=== PATIENT | female | born 1995 | race African-American/Black ===

== ENCOUNTER 2016-09-26 11:35 | Emergency (ER) | payer OTHER, MEDICAID ==
[~2016-09-26 11:35] MED LIST: IBUP800T23 PO; PRENTAB55 PO; TYLE325T5 PO
--- NOTE | 2016-09-26 13:25 | EDDOCDS ---
Physician Documentation [facility] Name: Farnaz Brambila Age: 21 yrs Sex: Female : 1995 Arrival Date: 09/26/2016 Time: 11:35 Bed TR7 Private MD: No Pcp Disposition: 09/26/16 12:57 Discharged to Home/Self Care. Impression: Laceration without foreign body of right wrist - superficial, no repair needed, Laceration without foreign body of left wrist - superficial, no repair needed. - Condition is Stable. - Discharge Instructions: Wound Care, [id number]. - Medication Reconciliation, Local Pharmacy Hours form. - Follow up: [facility]; When: Call to arrange an appointment; Reason: Further diagnostic work-up, Recheck today's complaints, Continuance of care. - Problem is new. - Symptoms are unchanged. Historical: - Allergies: Bees (Swelling); mushrooms (Anaphylaxis); oranges (Anaphylaxis); - Home Meds: 1. none - PMHx: Anemia; - PSHx: Left Foot Fracture Repair; - Immunization history:: Last tetanus immunization: unknown. - Family history: No immediate family members are acutely ill. - Social history: Smoking status: Patient states was never smoker of tobacco. No barriers to communication noted, The patient speaks fluent Arabic. - : The pt / caregiver states he / she is not on anticoagulants. Home medication list is obtained from the patient. - Exposure Risk Screening:: None identified. 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 5 in. (165.10 cm); Pain 6/10; 13:17 BP 109 / 71; Pulse 63; Resp 17; Temp 96.7(TE); Pulse Ox 100% ; mb9 11:38 Body Mass Index 30.79 (83.91 kg, 165.10 cm) cmb MDM: 12:59 Financial registration complete. pm4 13:11 [facility] Payment Agreement was scanned into [employer] and attached to record. pm4 Signatures: Lucas Jean PA PA btw Belles, MichaelRN RN mb9 Dominik Harper, Reg Reg pm4 The chart was reviewed and I authenticate all verbal orders and agree with the evaluation and treatment provided.Attachments: 13:11 [facility] Payment Agreement pm4 MTDD
--- NOTE | 2016-09-26 13:25 | EDDOCDS ---
Nurse's Notes [facility] Name: Farnaz Brambila Age: 21 yrs Sex: Female : 1995 Arrival Date: 09/26/2016 Time: 11:35 Bed TR7 Private MD: No Pcp Diagnosis: Laceration without foreign body of right wrist-superficial, no repair needed;Laceration without foreign body of left wrist-superficial, no repair needed Presentation: 09/26 11:41 Presenting complaint: Patient states: "I'm here for my wrists. My wouldn't let mb9 me through the door so I broke through the door". pt reports breaking through a glass door and that the glass shattered. laceration to bilateral wrists appear superficial. Adult Sepsis Screening: The patient does not have new or worsening altered mentation. Patient's respiratory rate is less than 22. Systolic blood pressure is greater than 100. Patient has a qSOFA score of 0- Negative Sepsis Screen. Suicide/Homicide risk assessment- the patient denies having any suicidal and/or homicidal ideations and does not present with any other emotional, behavioral or mental health complaints. Status: Patient is not a director public service or dependent. Transition of care: patient was not received from another setting of care. 11:41 Acuity: SIL Level 4 mb9 11:41 Method Of Arrival: Walkin/Carried/Asstd mb9 Triage Assessment: 11:43 General: Appears in no apparent distress, Behavior is appropriate for age. Pain: mb9 Location: right wrist Pain currently is 5 out of 10 on a pain scale. HIV screening NA for this visit Offered previously. Respiratory: Airway is patent Respiratory effort is even, unlabored. Injury Description: Laceration sustained to heel of left hand and right wrist is clean, superficial, 0.5 to 2.5 cm long. 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 none - PMHx: Anemia; - PSHx: Left Foot Fracture Repair; - Immunization history:: Last tetanus immunization: unknown. - Family history: No immediate family members are acutely ill. - Social history: Smoking status: Patient states was never smoker of tobacco. No barriers to communication noted, The patient speaks fluent Wolof. - : The pt / caregiver states he / she is not on anticoagulants. Home medication list is obtained from the patient. - Exposure Risk Screening:: None identified. Screenin:48 Abuse/DV Screen: The patient / caregiver reports he/she is: in a living situation that mb9 causes fear, pain or injury. There is an injury present, No other injuries are noted, pt asked if she lives in a situation that causes fear, pain, or injury and pt denied. pt was offered by this RN to have the social service assistant come and see the pt and the pt declined stating, "No I don't want to speak with them". This RN informed pt that if she changes her mind she should let one of the staff members kow. 13:22 Screening information is obtained from the patient. Fall risk: No risks identified. mb9 Assistance ADL's: requires no assistance with activities of daily living. Nutritional screening: No deficits noted. Advance Directives: There is no active DNR order. home support is adequate. Assessment: 13:22 Reassessment: Patient appears in no apparent distress at this time. General: Appears in mb9 no apparent distress, comfortable, Behavior is appropriate for age, cooperative. Pain: Location: right wrist Pain currently is 6 out of 10 on a pain scale. Respiratory: Airway is patent Respiratory effort is even, unlabored. Vital Signs: 11:38 BP 121 / 67; Pulse 105; Resp 16; Temp 99.2(O); Pulse Ox 98% ; Weight 83.91 kg; Height 5 cmb ft. 5 in. (165.10 cm); Pain 6/10; 13:17 BP 109 / 71; Pulse 63; Resp 17; Temp 96.7(TE); Pulse Ox 100% ; mb9 11:38 Body Mass Index 30.79 (83.91 kg, 165.10 cm) cmb Vitals: 11:38 Log In Time: September 26, 2016 at 11:34. cmb ED Course: 11:37 Patient visited by Leah Kelsey. cmb 11:37 Patient moved to Waiting cmb 11:38 No Pcp is Private Physician. cmb 11:38 Patient moved to Pre RCE cmb 11:42 Triage Initiated mb9 12:14 Patient moved to Triage 1 ar3 12:27 Lucas Jean PA is PHCP. btw 12:27 Jody De Dios MD is Attending Physician. btw 12:33 Patient visited by Lucas Jean PA. btw 12:56 [facility] is Referral Physician. btw 13:11 [facility] Payment Agreement was scanned into [employer] and attached to record. pm4 13:19 Patient moved to TR7 ar3 13:22 The patient / caregiver is instructed regarding the plan of care and ED course. mb9 13:22 No IV's were initiated during this patient's visit. No procedures done that require mb9 assistance. Order Results: There are currently no results for this order. Outcome: 12:57 Discharge ordered by Provider. btw 13:22 Discharge Assessment: Patient awake, alert and oriented x 3. No cognitive and/or mb9 functional deficits noted. Patient verbalized understanding of disposition instructions. patient administered narcotics - no. The following High Risk Discharge criteria are identified: None. Discharged to home ambulatory. Condition: good Condition: stable Condition: improved. Discharge instructions given to patient, Instructed on discharge instructions, follow up and referral plans. medication usage, Demonstrated understanding of instructions, medications, Pt was receptive of discharge instructions/ teaching. No special radiology studies were completed. Property :Personal belongings accompany Pt. 13:24 Patient left the ED. mb9 Signatures: Nanette Farris, BARBARA ARTS AND CRAFTS INSTRUCTOR ar3 Lucas Jean PA PA btw Leah Kelsey cmb Yaya Hernandez,RN RN mb9 Dominik Harper, Reg Reg pm4 MTDD
--- NOTE | 2016-09-28 14:25 | EDDOCDS ---
Nurse's Notes [facility] Name: Farnaz Brambila Age: 21 yrs Sex: Female : 1995 Arrival Date: 09/26/2016 Time: 11:35 Bed TR7 Private MD: No Pcp Diagnosis: Laceration without foreign body of right wrist-superficial, no repair needed;Laceration without foreign body of left wrist-superficial, no repair needed Presentation: 09/26 11:41 Presenting complaint: Patient states: "I'm here for my wrists. My wouldn't let mb9 me through the door so I broke through the door". pt reports breaking through a glass door and that the glass shattered. laceration to bilateral wrists appear superficial. Adult Sepsis Screening: The patient does not have new or worsening altered mentation. Patient's respiratory rate is less than 22. Systolic blood pressure is greater than 100. Patient has a qSOFA score of 0- Negative Sepsis Screen. Suicide/Homicide risk assessment- the patient denies having any suicidal and/or homicidal ideations and does not present with any other emotional, behavioral or mental health complaints. Status: Patient is not a director of student services or dependent. Transition of care: patient was not received from another setting of care. 11:41 Acuity: SIL Level 4 mb9 11:41 Method Of Arrival: Walkin/Carried/Asstd mb9 Triage Assessment: 11:43 General: Appears in no apparent distress, Behavior is appropriate for age. Pain: mb9 Location: right wrist Pain currently is 5 out of 10 on a pain scale. HIV screening NA for this visit Offered previously. Respiratory: Airway is patent Respiratory effort is even, unlabored. Injury Description: Laceration sustained to heel of left hand and right wrist is clean, superficial, 0.5 to 2.5 cm long. 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 none - PMHx: Anemia; - PSHx: Left Foot Fracture Repair; - Immunization history:: Last tetanus immunization: unknown. - Family history: No immediate family members are acutely ill. - Social history: Smoking status: Patient states was never smoker of tobacco. No barriers to communication noted, The patient speaks fluent Occitan. - : The pt / caregiver states he / she is not on anticoagulants. Home medication list is obtained from the patient. - Exposure Risk Screening:: None identified. Screenin:48 Abuse/DV Screen: The patient / caregiver reports he/she is: in a living situation that mb9 causes fear, pain or injury. There is an injury present, No other injuries are noted, pt asked if she lives in a situation that causes fear, pain, or injury and pt denied. pt was offered by this RN to have the social media marketing analyst come and see the pt and the pt declined stating, "No I don't want to speak with them". This RN informed pt that if she changes her mind she should let one of the staff members kow. 13:22 Screening information is obtained from the patient. Fall risk: No risks identified. mb9 Assistance ADL's: requires no assistance with activities of daily living. Nutritional screening: No deficits noted. Advance Directives: There is no active DNR order. home support is adequate. Assessment: 13:22 Reassessment: Patient appears in no apparent distress at this time. General: Appears in mb9 no apparent distress, comfortable, Behavior is appropriate for age, cooperative. Pain: Location: right wrist Pain currently is 6 out of 10 on a pain scale. Respiratory: Airway is patent Respiratory effort is even, unlabored. Vital Signs: 11:38 BP 121 / 67; Pulse 105; Resp 16; Temp 99.2(O); Pulse Ox 98% ; Weight 83.91 kg; Height 5 cmb ft. 5 in. (165.10 cm); Pain 6/10; 13:17 BP 109 / 71; Pulse 63; Resp 17; Temp 96.7(TE); Pulse Ox 100% ; mb9 11:38 Body Mass Index 30.79 (83.91 kg, 165.10 cm) cmb Vitals: 11:38 Log In Time: September 26, 2016 at 11:34. cmb ED Course: 11:37 Patient visited by Laeh Kelsey. cmb 11:37 Patient moved to Waiting cmb 11:38 No Pcp is Private Physician. cmb 11:38 Patient moved to Pre RCE cmb 11:42 Triage Initiated mb9 12:14 Patient moved to Triage 1 ar3 12:27 Lucas Jean PA is PHCP. btw 12:27 Jody De Dios MD is Attending Physician. btw 12:33 Patient visited by Lucas Jean PA. btw 12:56 [facility] is Referral Physician. btw 13:11 [facility] Payment Agreement was scanned into [employer] and attached to record. pm4 13:19 Patient moved to TR7 ar3 13:22 The patient / caregiver is instructed regarding the plan of care and ED course. mb9 13:22 No IV's were initiated during this patient's visit. No procedures done that require mb9 assistance. 09/27 12:50 T-Sheet-- Draft Copy was scanned into [employer] and attached to record. gb Order Results: There are currently no results for this order. Outcome: 09/26 12:57 Discharge ordered by Provider. btw 13:22 Discharge Assessment: Patient awake, alert and oriented x 3. No cognitive and/or mb9 functional deficits noted. Patient verbalized understanding of disposition instructions. patient administered narcotics - no. The following High Risk Discharge criteria are identified: None. Discharged to home ambulatory. Condition: good Condition: stable Condition: improved. Discharge instructions given to patient, Instructed on discharge instructions, follow up and referral plans. medication usage, Demonstrated understanding of instructions, medications, Pt was receptive of discharge instructions/ teaching. No special radiology studies were completed. Property :Personal belongings accompany Pt. 13:24 Patient left the ED. mb9 Signatures: Juanita Turner, Reg Reg gb Brenton, Nanette, GRADUATE RN GRADUATE RN ar3 Lucas Jean PA PA btw Leah Kelsey cmb Yaya Hernandez,ALIDA RN mb9 Dominik Harper, Reg Reg pm4 Chart Complete MTDD
--- NOTE | 2016-09-28 14:25 | EDDOCDS ---
Physician Documentation [facility] Name: Farnaz Brambila Age: 21 yrs Sex: Female : 1995 Arrival Date: 09/26/2016 Time: 11:35 Bed TR7 Private MD: No Pcp Disposition: 09/26/16 12:57 Discharged to Home/Self Care. Impression: Laceration without foreign body of right wrist - superficial, no repair needed, Laceration without foreign body of left wrist - superficial, no repair needed. - Condition is Stable. - Discharge Instructions: Wound Care, [id number]. - Medication Reconciliation, Local Pharmacy Hours form. - Follow up: [facility]; When: Call to arrange an appointment; Reason: Further diagnostic work-up, Recheck today's complaints, Continuance of care. - Problem is new. - Symptoms are unchanged. Historical: - Allergies: Bees (Swelling); mushrooms (Anaphylaxis); oranges (Anaphylaxis); - Home Meds: 1. none - PMHx: Anemia; - PSHx: Left Foot Fracture Repair; - Immunization history:: Last tetanus immunization: unknown. - Family history: No immediate family members are acutely ill. - Social history: Smoking status: Patient states was never smoker of tobacco. No barriers to communication noted, The patient speaks fluent Spanish. - : The pt / caregiver states he / she is not on anticoagulants. Home medication list is obtained from the patient. - Exposure Risk Screening:: None identified. 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 5 in. (165.10 cm); Pain 6/10; 13:17 BP 109 / 71; Pulse 63; Resp 17; Temp 96.7(TE); Pulse Ox 100% ; mb9 11:38 Body Mass Index 30.79 (83.91 kg, 165.10 cm) cmb MDM: 12:59 Financial registration complete. pm4 13:11 [facility] Payment Agreement was scanned into [employer] and attached to record. pm4 09/27 12:50 T-Sheet-- Draft Copy was scanned into [employer] and attached to record. gb Signatures: Juanita Turner, Reg Reg gb Lucas Jean PA PA btw Yaya Hernandez,RN RN mb9 Dominik Harper, Reg Reg pm4 The chart was reviewed and I authenticate all verbal orders and agree with the evaluation and treatment provided.Attachments: 09/26 13:11 [facility] Payment Agreement pm4 09/27 12:50 T-Sheet-- Draft Copy gb Chart Complete MTDD
--- NOTE | 2016-09-28 14:25 | EDDOCDS ---
Physician Documentation [facility] Name: Farnaz Brambila Age: 21 yrs Sex: Female : 1995 Arrival Date: 09/26/2016 Time: 11:35 Bed TR7 Private MD: No Pcp Disposition: 09/26/16 12:57 Discharged to Home/Self Care. Impression: Laceration without foreign body of right wrist - superficial, no repair needed, Laceration without foreign body of left wrist - superficial, no repair needed. - Condition is Stable. - Discharge Instructions: Wound Care, [id number]. - Medication Reconciliation, Local Pharmacy Hours form. - Follow up: [facility]; When: Call to arrange an appointment; Reason: Further diagnostic work-up, Recheck today's complaints, Continuance of care. - Problem is new. - Symptoms are unchanged. Historical: - Allergies: Bees (Swelling); mushrooms (Anaphylaxis); oranges (Anaphylaxis); - Home Meds: 1. none - PMHx: Anemia; - PSHx: Left Foot Fracture Repair; - Immunization history:: Last tetanus immunization: unknown. - Family history: No immediate family members are acutely ill. - Social history: Smoking status: Patient states was never smoker of tobacco. No barriers to communication noted, The patient speaks fluent Malay. - : The pt / caregiver states he / she is not on anticoagulants. Home medication list is obtained from the patient. - Exposure Risk Screening:: None identified. 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 5 in. (165.10 cm); Pain 6/10; 13:17 BP 109 / 71; Pulse 63; Resp 17; Temp 96.7(TE); Pulse Ox 100% ; mb9 11:38 Body Mass Index 30.79 (83.91 kg, 165.10 cm) cmb MDM: 12:59 Financial registration complete. pm4 13:11 [facility] Payment Agreement was scanned into [employer] and attached to record. pm4 09/27 12:50 T-Sheet-- Draft Copy was scanned into [employer] and attached to record. gb Signatures: Juanita Turner, Reg Reg gb Lucas Jean PA PA btw Yaya Hernandez,RN RN mb9 Dominik Harper, Reg Reg pm4 The chart was reviewed and I authenticate all verbal orders and agree with the evaluation and treatment provided.Attachments: 09/26 13:11 [facility] [place] Payment Agreement pm4 09/27 12:50 T-Sheet-- Draft Copy gb Chart Complete MTDD
== END 2016-09-26 13:24 | disposition home or self-care (01) ==
LOC: M ED 11:35
DX: S61.511A Laceration without foreign body of right wrist, initial encounter (principal); S61.512A Laceration without foreign body of left wrist, initial encounter; W22.8XXA Striking against or struck by other objects, initial encounter; Y92.098 Other place in other non-institutional residence as the place of occurrence of the external cause; Y93.89 Activity, other specified; Y99.8 Other external cause status; D64.9 Anemia, unspecified; Z91.030 Bee allergy status; Z91.018 Allergy to other foods

== ENCOUNTER 2017-01-16 17:43 | Emergency (ER) | payer OTHER, MEDICAID ==
[~2017-01-16] VITALS: Ht 160 cm; Wt 78.9 kg
[2017-01-16 19:03] LABS: BASO % 0.7 % (0.0-1.0); EOS # 0.1 K/mm3 (0.0-0.50); EOS % 1.3 % (0.0-3.0); LARGE UNSTAINED CELL # 0.1 K/mm3 (0.0-0.4); LARGE UNSTAINED CELL % 1.5 % (0.0-4.0); LYMPH # 2.6 K/mm3 (1.5-6.5); LYMPH % 38.1 % (24.0-44.0); MEAN CORPUSCULAR HEMOGLOBIN 25.8 pg (27.0-33.0); MEAN CORPUSCULAR VOLUME 83.1 fl (80.0-96.0); MONO # 0.3 K/mm3 (0.0-0.8); MONO % 4.3 % (0.0-5.0); NEUTROPHILS # 3.6 K/mm3 (1.8-7.7); NEUTROPHILS % 54.2 % (36.0-66.0); PLATELET COUNT, AUTOMATED 239 k/mm3 (150-450); WHITE BLOOD COUNT 6.6 K/mm3 (4.0-10.0)
[2017-01-16] MEDS ORDERED: NS 1,000 ML IV ONE (19:15)
[2017-01-16 19:33] LABS: ALBUMIN 3.8 GM/DL (3.2-5.2); ALBUMIN/GLOBULIN RATIO 1.19 (1.00-1.93); ALKALINE PHOSPHATASE 66 U/L (45-117); ALT/SGPT 19 U/L (12-78); ANION GAP 6 MEQ/L (8-16); AST/SGOT 15 U/L (15-37); BILIRUBIN,DIRECT < 0.1 MG/DL (0.0-0.2); BILIRUBIN,TOTAL 0.2 MG/DL (0.2-1.0); BLOOD UREA NITROGEN 6 MG/DL (7-18); CALCIUM LEVEL 8.6 MG/DL (8.5-10.1); CARBON DIOXIDE LEVEL 30 MEQ/L (21-32); CHLORIDE LEVEL 106 MEQ/L (98-107); CREATININE FOR GFR 0.57 MG/DL (0.55-1.02); GLOMERULAR FILTRATION RATE > 60.0 (>60); GLUCOSE, FASTING 81 MG/DL (70-105); POTASSIUM SERUM 3.4 MEQ/L (3.5-5.1); SODIUM LEVEL 142 MEQ/L (136-145)
[2017-01-16] MEDS ORDERED: BACT800T5 PO (19:57)
[2017-01-16] MEDS ORDERED: BACTRIM 160MG/800MG DS TAB PO ONE (20:00)
[2017-01-16] MEDS ORDERED: ACETAMINOPHEN 325 MG TAB PO ONE (20:15)
[2017-01-16 20:17] VITALS: BP 108/61
== END 2017-01-16 20:19 | disposition home or self-care (01) ==
LOC: M ED 18:59
DX: D64.9 Anemia, unspecified (principal); N39.0 Urinary tract infection, site not specified; Z91.018 Allergy to other foods

== ENCOUNTER 2017-01-17 09:00 | Emergency (ER) | payer OTHER, MEDICAID ==
[~2017-01-17] VITALS: Ht 160 cm; Wt 78.9 kg
[2017-01-17 09:00] VITALS: BP 111/63
[~2017-01-17 09:00] MED LIST changes: +BACT800T5 PO
--- NOTE | 2017-01-17 10:51 | REP ---
PELVIC ULTRASOUND: Real-time sonographic evaluation of the pelvis performed utilizing transabdominal and endovaginal technique. Bladder measures 3.2 x 4.6 cm. Uterus measures 9.6 x 5.4 x 7.7 cm. Thin endometrial stripe measures 2 mm with no endometrial fluid collection. Ovaries normal in size and echotexture, right ovary measuring 2.9 x 1.5 x 2.5 cm and left ovary 2.9 x 2.0 x 2.5 cm. There is no adnexal mass or free fluid. Blood flow is seen in each ovary with duplex Doppler evaluation, with no torsion, RI right ovary 0.68 and left ovary 0.59. IMPRESSION: Negative pelvic ultrasound. Signed by Gordy Brenner MD 01/18/2017 04:40 P
== END 2017-01-17 10:40 | disposition home or self-care (01) ==
LOC: M ED 09:34
DX: R10.9 Unspecified abdominal pain (principal); Z98.890 Other specified postprocedural states; D57.3 Sickle-cell trait; F17.210 Nicotine dependence, cigarettes, uncomplicated; Z79.2 Long term (current) use of antibiotics; Z91.018 Allergy to other foods

== ENCOUNTER 2017-03-16 19:06 | Emergency (ER) | payer MEDICAID, OTHER ==
[~2017-03-16] VITALS: Ht 162.6 cm; Wt 79.2 kg
[~2017-03-16 19:06] MED LIST changes: +IBUP1TAB7 PO; -IBUP800T23 PO
[2017-03-16 19:07] VITALS: BP 110/55
== END 2017-03-16 20:23 | disposition home or self-care (01) ==
LOC: M ED 20:08
DX: J02.9 Acute pharyngitis, unspecified (principal); Z91.018 Allergy to other foods

== ENCOUNTER 2017-03-20 10:53 | Emergency (ER) | payer MEDICAID, OTHER ==
[~2017-03-20] VITALS: Ht 162.6 cm; Wt 78.3 kg
[2017-03-20] MEDS ORDERED: IBUP-1114 PO (11:01)
[2017-03-20] MEDS ORDERED: TYLE325T5 PO (11:01)
[2017-03-20] MEDS ORDERED: KETOROLAC 60 MG/2 ML VIAL (J1885) IM ONE (11:15)
[2017-03-20 11:40] LABS: BASO % 0.7 % (0.0-1.0); EOS # 0.1 K/mm3 (0.0-0.50); EOS % 1.1 % (0.0-3.0); LARGE UNSTAINED CELL # 0.1 K/mm3 (0.0-0.4); LARGE UNSTAINED CELL % 1.8 % (0.0-4.0); LYMPH # 2.4 K/mm3 (1.5-6.5); LYMPH % 31.7 % (24.0-44.0); MEAN CORPUSCULAR HEMOGLOBIN 27.2 pg (27.0-33.0); MEAN CORPUSCULAR HGB CONC 31.7 g/dl (32.0-36.5); MEAN CORPUSCULAR VOLUME 85.9 fl (80.0-96.0); MONO # 0.3 K/mm3 (0.0-0.8); MONO % 3.4 % (0.0-5.0); NEUTROPHILS # 4.6 K/mm3 (1.8-7.7); NEUTROPHILS % 61.3 % (36.0-66.0); PLATELET COUNT, AUTOMATED 237 k/mm3 (150-450); RED CELL DISTRIBUTION WIDTH 13.8 % (11.5-14.5); WHITE BLOOD COUNT 7.4 K/mm3 (4.0-10.0)
[2017-03-20 11:58] LABS: CONTROL LINE MONO RF C INT CTR LINE PRESENT
[2017-03-20 12:02] LABS: ALBUMIN/GLOBULIN RATIO 1.11 (1.00-1.93); ALKALINE PHOSPHATASE 71 U/L (45-117); ALT/SGPT 19 U/L (12-78); ANION GAP 5 MEQ/L (8-16); AST/SGOT 13 U/L (15-37); BILIRUBIN,TOTAL 0.5 MG/DL (0.2-1.0); BLOOD UREA NITROGEN 8 MG/DL (7-18); CARBON DIOXIDE LEVEL 28 MEQ/L (21-32); CHLORIDE LEVEL 107 MEQ/L (98-107); GLOMERULAR FILTRATION RATE > 60.0 (>60); GLUCOSE, FASTING 82 MG/DL (70-105); POTASSIUM SERUM 4.1 MEQ/L (3.5-5.1); SODIUM LEVEL 140 MEQ/L (136-145); TOTAL PROTEIN 7.6 GM/DL (6.4-8.2)
[2017-03-20 12:32] VITALS: BP 101/52
== END 2017-03-20 12:38 | disposition home or self-care (01) ==
LOC: M ED 11:21
DX: J02.9 Acute pharyngitis, unspecified (principal); R05 Cough; Z91.018 Allergy to other foods
CPT/HCPCS: 80053; 85025; 86308; 86663; 86664; 86665; 96372; 99282; J1885

== ENCOUNTER 2017-08-10 15:25 | Emergency (ER) | payer OTHER ==
[~2017-08-10] VITALS: Ht 167.6 cm; Wt 78.6 kg
[~2017-08-10 15:25] MED LIST changes: +IBUP-1114 PO
[2017-08-10] MEDS ORDERED: TUMS500C PO (15:36)
[2017-08-10] MEDS ORDERED: GI COCKTAIL 50ML BTL(HYOSCYAMINE/MAALOX/LIDOCAINE VISCOUS)(1:3:1) PO ONE (17:45)
[2017-08-10] MEDS ORDERED: PRIL20CA9 PO (18:20)
[2017-08-10] MEDS ORDERED: SIME1CAP PO (18:22)
[2017-08-10 18:28] VITALS: BP 124/70
--- NOTE | 2017-08-11 08:37 | ECGEPIP ---
Stationary ECG Study [facility] - ED Test Date: 2017-08-10 Pat Name: GRIS DIAZ Department: Room: - Gender: F Entry Analyst: tracy : 1995 Requested By: ALEJANDRO BERGMAN PA-C. Order Number: [id number] Reading MD: Jody De Dios Measurements Intervals Twining Rate: 49 P: 32 AR: 154 QRS: 91 QRSD: 90 T: 65 QT: 436 QTc: 396 Interpretive Statements SINUS BRADYCARDIA BORDERLINE RIGHT AXIS DEVIATION NO PRIOR FOR COMPARISON Electronically Signed On 08-11-2017 8:37:10 EST by Jody De Dios
== END 2017-08-10 18:30 | disposition home or self-care (01) ==
LOC: M ED 15:25
DX: K21.9 Gastro-esophageal reflux disease without esophagitis (principal); R00.1 Bradycardia, unspecified; D57.3 Sickle-cell trait; Z79.899 Other long term (current) drug therapy; Z91.018 Allergy to other foods

== ENCOUNTER 2017-11-29 13:59 | Inpatient (IN) | payer OTHER, MEDICAID ==
[2017-11-29 16:01] LABS: BASO % 0.5 % (0.0-1.0); EOS # 0.1 10^3/uL (0.0-0.50); EOS % 1.1 % (0.0-3.0); HEMATOCRIT 37.3 % (36.0-47.0); HEMOGLOBIN 12.1 g/dl (12.0-16.0); IMMATURE GRANULOCYTE % 0.3 % (0-3.0); LYMPH # 1.9 10^3/uL (1.5-6.5); LYMPH % 27.8 % (24.0-44.0); MEAN CORPUSCULAR HEMOGLOBIN 26.7 pg (27.0-33.0); MEAN CORPUSCULAR HGB CONC 32.4 g/dl (32.0-36.5); MEAN CORPUSCULAR VOLUME 82.3 fl (80.0-96.0); MONO # 0.4 10^3/uL (0.0-0.8); MONO % 6.6 % (0.0-5.0); NEUTROPHILS # 4.2 10^3/uL (1.8-7.7); NEUTROPHILS % 63.7 % (36.0-66.0); PLATELET COUNT, AUTOMATED 228 10^3/uL (150-450); RED BLOOD COUNT 4.53 10^6/uL (4.00-5.40); RED CELL DISTRIBUTION WIDTH 14.1 % (11.5-14.5); WHITE BLOOD COUNT 6.7 10^3/uL (4.0-10.0)
[2017-11-29] MEDS: GI COCKTAIL 50ML BTL(HYOSCYAMINE/MAALOX/LIDOCAINE VISCOUS)(1:3:1) PO (16:06)
[2017-11-29] MEDS: NS 1,000 ML IV ×2 (16:06→20:33)
[2017-11-29] MEDS: PANTOPRAZOLE 40MG INJ (PROTONIX) (C9113) IV (16:07)
[2017-11-29] MEDS: MORPHINE 4 MG/ML 1ML VIAL (J2270) IV ×2 (16:07→18:00)
[2017-11-29] MEDS: ONDANSETRON 4MG/2ML VIAL (J2405) IV (16:08)
[2017-11-29 16:23] LABS: ALBUMIN/GLOBULIN RATIO 1.25 (1.00-1.93); ALKALINE PHOSPHATASE 149 U/L (45-117); ALT/SGPT 355 U/L (12-78); ANION GAP 6 MEQ/L (8-16); AST/SGOT 328 U/L (7-37); BILIRUBIN,TOTAL 2.6 MG/DL (0.2-1.0); BLOOD UREA NITROGEN 8 MG/DL (7-18); CALCIUM LEVEL 8.4 MG/DL (8.5-10.1); CARBON DIOXIDE LEVEL 31 MEQ/L (21-32); CHLORIDE LEVEL 106 MEQ/L (98-107); CPK CREATINE PHOSPHOKINASE 186 U/L (26-192); CREATININE FOR GFR 0.58 MG/DL (0.55-1.30); GLOMERULAR FILTRATION RATE > 60.0 (>60); GLUCOSE, FASTING 83 MG/DL (70-100); LIPASE 171 U/L (73-393); MB/CK RELATIVE INDEX 0.53 (< OR =4); POTASSIUM SERUM 3.9 MEQ/L (3.5-5.1); SODIUM LEVEL 143 MEQ/L (136-145); TOTAL PROTEIN 7.2 GM/DL (6.4-8.2)
[2017-11-29] MEDS ORDERED: ISOVUE-370 76% 100ML VIAL (Q9967) As Ordered (16:31)
[2017-11-29] MEDS ORDERED: MORPHINE 4 MG/ML 1ML VIAL (J2270) IV ×2 (20:00)
[2017-11-29] MEDS ORDERED: METOCLOPRAMIDE INJ 10MG/2ML VIAL (J2765) IV (20:00)
[2017-11-29] MEDS: PIPERACILLIN/TAZOBACTAM SOD 3.375 GM in APPROPRIATE DILUENT 1 EA IV (20:32)
[2017-11-29 21:15] LABS: APPEARANCE, URINE CLEAR (CLEAR); BACTERIA, URINE AUTO NEGATIVE (NEGATIVE); BILIRUBIN, URINE AUTO 1+ (NEGATIVE); BLOOD, URINE BLOOD NEGATIVE (NEGATIVE); COLOR, URINE AMBER (YELLOW); GLUCOSE, URINE (UA) AUTO NEGATIVE (NEGATIVE); KETONE, URINE AUTO NEGATIVE (NEGATIVE); LEUKOCYTE ESTERASE, URINE AUTO TRACE (NEGATIVE); NITRITE, URINE AUTO NEGATIVE (NEGATIVE); PROTEIN, URINE AUTO NEGATIVE (NEGATIVE); RBC, URINE AUTO 2 /HPF (0-3); SQUAMOUS EPITHELIAL CELL UR AU 2 /HPF (0-6); WBC, URINE AUTO 3 /HPF (0-3)
[2017-11-29 21:19] LABS: SPECIFIC GRAVITY URINE AUTO >1.060 (1.002-1.035)
[2017-11-29] MEDS: PROMETHAZINE INJ 25 MG/ML VIAL (J2550) IV (22:56)
[2017-11-30] MEDS ORDERED: PIPERACILLIN/TAZOBACTAM SOD 3.375 GM in APPROPRIATE DILUENT 1 EA IV (03:00)
[2017-11-30] MEDS: PIPERACILLIN/TAZOBACTAM SOD 3.375 GM in APPROPRIATE DILUENT 1 EA IV ×3 (03:24→14:15)
[2017-11-30] MEDS: NS 1,000 ML IV ×2 (03:25→12:00)
[2017-11-30 07:28] LABS: HEMATOCRIT 33.9 % (36.0-47.0); HEMOGLOBIN 10.6 g/dl (12.0-16.0); MEAN CORPUSCULAR HEMOGLOBIN 25.8 pg (27.0-33.0); MEAN CORPUSCULAR HGB CONC 31.3 g/dl (32.0-36.5); MEAN CORPUSCULAR VOLUME 82.5 fl (80.0-96.0); PLATELET COUNT, AUTOMATED 222 10^3/uL (150-450); RED BLOOD COUNT 4.11 10^6/uL (4.00-5.40); RED CELL DISTRIBUTION WIDTH 14.3 % (11.5-14.5)
[2017-11-30 07:54] LABS: ALBUMIN 3.2 GM/DL (3.2-5.2); ALBUMIN/GLOBULIN RATIO 1.14 (1.00-1.93); ALKALINE PHOSPHATASE 145 U/L (45-117); ALT/SGPT 247 U/L (12-78); ANION GAP 6 MEQ/L (8-16); AST/SGOT 165 U/L (7-37); BILIRUBIN,TOTAL 2.8 MG/DL (0.2-1.0); BLOOD UREA NITROGEN 9 MG/DL (7-18); CALCIUM LEVEL 8.1 MG/DL (8.5-10.1); CARBON DIOXIDE LEVEL 28 MEQ/L (21-32); CHLORIDE LEVEL 112 MEQ/L (98-107); GLOMERULAR FILTRATION RATE > 60.0 (>60); GLUCOSE, FASTING 77 MG/DL (70-100); SODIUM LEVEL 146 MEQ/L (136-145)
[2017-11-30] MEDS: ONDANSETRON 4MG/2ML VIAL (J2405) IV (08:10)
[2017-11-30] MEDS: PANTOPRAZOLE 40MG INJ (PROTONIX) (C9113) IV (08:10)
[2017-11-30] MEDS: KETOROLAC 30 MG/ML VIAL (J1885) IV (08:11)
[2017-11-30] MEDS ORDERED: ROCURONIUM BROMIDE 50 MG/5 ML VIAL As Ordered (16:36)
[2017-11-30] MEDS ORDERED: PROPOFOL 200 MG/20 ML VIAL As Ordered (16:36)
[2017-11-30] MEDS ORDERED: LIDOCAINE 2% INJ 100 MG/5 ML SDV (FOR ANES.) As Ordered (16:36)
[2017-11-30] MEDS ORDERED: fentaNYL 100 MCG/2 ML INJECTION (J3010) As Ordered (16:36)
[2017-11-30] MEDS ORDERED: MIDAZOLAM INJ 2 MG/2 ML VIAL (J2250) As Ordered (16:37)
[2017-11-30 17:09] LABS: HCG, SERUM QUANTITATIVE < 1.0 MIU/ML
[2017-11-30] MEDS: ISOVUE-300 61% 50ML VIAL (Q9967) As Ordered (17:35)
[2017-11-30] MEDS ORDERED: ONDANSETRON 4MG/2ML VIAL (J2405) As Ordered (17:40)
[2017-11-30] MEDS ORDERED: GLYCOPYRROLATE INJ 0.2 MG/ML 2 ML VIAL As Ordered ×2 (17:40)
[2017-11-30] MEDS ORDERED: NEOSTIGMINE 10 MG/10 ML VIAL (J2710) As Ordered (17:40)
[2017-11-30] MEDS ORDERED: fentaNYL 100 MCG/2 ML INJECTION (J3010) IV (18:30)
[2017-11-30] MEDS ORDERED: ONDANSETRON 4MG/2ML VIAL (J2405) IV (18:30)
[2017-11-30] MEDS ORDERED: METOCLOPRAMIDE INJ 10MG/2ML VIAL (J2765) IV (18:30)
[2017-11-30] MEDS: LR 1,000 ML IV (18:30)
[2017-11-30] MEDS ORDERED: HYDROmorphone HCL 1 MG/ML SYRINGE (J1170) IV (18:30)
[2017-11-30] MEDS: PANTOPRAZOLE 40MG TAB (PROTONIX) PO (20:49)
[2017-11-30] MEDS: AUGMENTIN 875 MG TAB PO (20:49)
[2017-12-01] MEDS: PERCOCET 5MG/325MG TAB PO (04:50)
[2017-12-01 06:15] LABS: HEMOGLOBIN 10.2 g/dl (12.0-16.0); MEAN CORPUSCULAR HEMOGLOBIN 26.5 pg (27.0-33.0); MEAN CORPUSCULAR HGB CONC 31.9 g/dl (32.0-36.5); MEAN CORPUSCULAR VOLUME 83.1 fl (80.0-96.0); PLATELET COUNT, AUTOMATED 201 10^3/uL (150-450); RED BLOOD COUNT 3.85 10^6/uL (4.00-5.40); RED CELL DISTRIBUTION WIDTH 14.2 % (11.5-14.5); WHITE BLOOD COUNT 7.1 10^3/uL (4.0-10.0)
[2017-12-01 06:38] LABS: ALBUMIN/GLOBULIN RATIO 1.15 (1.00-1.93); ALKALINE PHOSPHATASE 142 U/L (45-117); ALT/SGPT 176 U/L (12-78); ANION GAP 4 MEQ/L (8-16); AST/SGOT 77 U/L (7-37); BILIRUBIN,TOTAL 1.1 MG/DL (0.2-1.0); BLOOD UREA NITROGEN 8 MG/DL (7-18); CALCIUM LEVEL 7.6 MG/DL (8.5-10.1); CARBON DIOXIDE LEVEL 27 MEQ/L (21-32); CHLORIDE LEVEL 110 MEQ/L (98-107); CREATININE FOR GFR 0.48 MG/DL (0.55-1.30); GLOMERULAR FILTRATION RATE > 60.0 (>60); GLUCOSE, FASTING 87 MG/DL (70-100); POTASSIUM SERUM 3.9 MEQ/L (3.5-5.1); SODIUM LEVEL 141 MEQ/L (136-145); TOTAL PROTEIN 5.6 GM/DL (6.4-8.2)
[2017-12-01] MEDS: LR 1,000 ML IV (07:50)
[2017-12-01] MEDS: PANTOPRAZOLE 40MG TAB (PROTONIX) PO ×2 (08:52→20:15)
[2017-12-01] MEDS: AUGMENTIN 875 MG TAB PO ×2 (08:52→20:15)
[2017-12-01] MEDS: NORCO, ANEXSIA 5/325MG TABLET (HYDROcodone/ACETAMINOPHEN) PO ×3 (08:53→21:32)
[2017-12-01] MEDS ORDERED: ONDANSETRON 4 MG ORAL DISINTEGRATING TAB (S0181) PO (15:15)
[2017-12-01] MEDS: IBUPROFEN 600 MG TAB PO (18:25)
[2017-12-02 06:20] LABS: HEMOGLOBIN 10.1 g/dl (12.0-16.0); MEAN CORPUSCULAR HEMOGLOBIN 26.6 pg (27.0-33.0); MEAN CORPUSCULAR HGB CONC 31.6 g/dl (32.0-36.5); MEAN CORPUSCULAR VOLUME 84.2 fl (80.0-96.0); PLATELET COUNT, AUTOMATED 195 10^3/uL (150-450); RED CELL DISTRIBUTION WIDTH 14.2 % (11.5-14.5); WHITE BLOOD COUNT 6.8 10^3/uL (4.0-10.0)
[2017-12-02] MEDS: NORCO, ANEXSIA 5/325MG TABLET (HYDROcodone/ACETAMINOPHEN) PO ×2 (06:31→10:30)
[2017-12-02 07:06] LABS: ALBUMIN 2.9 GM/DL (3.2-5.2); ALBUMIN/GLOBULIN RATIO 1.12 (1.00-1.93); ALKALINE PHOSPHATASE 127 U/L (45-117); ALT/SGPT 125 U/L (12-78); ANION GAP 4 MEQ/L (8-16); AST/SGOT 39 U/L (7-37); BILIRUBIN,TOTAL 0.4 MG/DL (0.2-1.0); BLOOD UREA NITROGEN 9 MG/DL (7-18); CALCIUM LEVEL 7.8 MG/DL (8.5-10.1); CARBON DIOXIDE LEVEL 30 MEQ/L (21-32); CHLORIDE LEVEL 110 MEQ/L (98-107); CREATININE FOR GFR 0.62 MG/DL (0.55-1.30); GLOMERULAR FILTRATION RATE > 60.0 (>60); GLUCOSE, FASTING 95 MG/DL (70-100); SODIUM LEVEL 144 MEQ/L (136-145); TOTAL PROTEIN 5.5 GM/DL (6.4-8.2)
[2017-12-02] MEDS: IBUPROFEN 600 MG TAB PO (08:20)
[2017-12-02] MEDS: PANTOPRAZOLE 40MG TAB (PROTONIX) PO (08:20)
[2017-12-02] MEDS: AUGMENTIN 875 MG TAB PO (08:21)
== END 2017-12-02 14:21 | disposition home or self-care (01) | DRG 446 ==
LOC: M ED 13:59 → M ED INP 20:00 → M PED 22:30
PROC: 0FC98ZZ Extirpation of Matter from Common Bile Duct, Via Natural or Artificial Opening Endoscopic (ICD-10-PCS; principal; 2017-11-30 16:00)
DX: K80.50 Calculus of bile duct without cholangitis or cholecystitis without obstruction (principal); K21.9 Gastro-esophageal reflux disease without esophagitis; Z88.8 Allergy status to other drugs, medicaments and biological substances

== ENCOUNTER 2017-12-14 06:11 | Day surgery (SDC) | payer OTHER, MEDICAID ==
[2017-12-14] MEDS ORDERED: MIDAZOLAM INJ 2 MG/2 ML VIAL (J2250) As Ordered (06:33)
[2017-12-14] MEDS ORDERED: ROCURONIUM BROMIDE 50 MG/5 ML VIAL As Ordered (06:33)
[2017-12-14] MEDS ORDERED: PROPOFOL 200 MG/20 ML VIAL As Ordered (06:33)
[2017-12-14] MEDS ORDERED: LIDOCAINE 2% INJ 100 MG/5 ML SDV (FOR ANES.) As Ordered (06:33)
[2017-12-14] MEDS ORDERED: fentaNYL 100 MCG/2 ML INJECTION (J3010) As Ordered (06:33)
[2017-12-14] MEDS ORDERED: GLYCOPYRROLATE INJ 0.2 MG/ML 2 ML VIAL As Ordered (06:34)
[2017-12-14] MEDS ORDERED: ONDANSETRON 4MG/2ML VIAL (J2405) As Ordered (06:34)
[2017-12-14] MEDS ORDERED: KETOROLAC 60 MG/2 ML VIAL (J1885) As Ordered (06:34)
[2017-12-14] MEDS ORDERED: NEOSTIGMINE 10 MG/10 ML VIAL (J2710) As Ordered (06:34)
[2017-12-14] MEDS ORDERED: dexameTHASONE 4 MG/ML 1ML VIAL (J1100) As Ordered (06:35)
[2017-12-14 07:04] LABS: CONTROL LINE UCG INT CTR LINE PRESENT; URINE PREG TEST NEGATIVE (NEGATIVE)
[2017-12-14] MEDS ORDERED: CONRAY-60 60% 50ML VIAL (Q9961) As Ordered (07:09)
[2017-12-14] MEDS ORDERED: BUPIVACAINE HCL 0.25% 30 ML VIAL As Ordered (07:10)
[2017-12-14] MEDS: LR 1,000 ML IV (07:13)
[2017-12-14] MEDS: CEFAZOLIN SOD 1 GM in APPROPRIATE DILUENT 1 EA IV (07:49)
[2017-12-14] MEDS: BUPIVACAINE/EPIN 0.5% 30 ML VIAL As Ordered (08:35)
[2017-12-14] MEDS ORDERED: MEPERIDINE INJ 25 MG/ML VIAL (J2175) IV (09:30)
[2017-12-14] MEDS ORDERED: MORPHINE 4 MG/ML 1ML VIAL (J2270) IV (09:30)
[2017-12-14] MEDS ORDERED: NORCO, ANEXSIA 5/325MG TABLET (HYDROcodone/ACETAMINOPHEN) PO (09:30)
[2017-12-14] MEDS ORDERED: METOCLOPRAMIDE INJ 10MG/2ML VIAL (J2765) IV (09:30)
[2017-12-14] MEDS ORDERED: KETOROLAC 30 MG/ML VIAL (J1885) IV ×2 (09:30→13:00)
[2017-12-14] MEDS ORDERED: LR 1,000 ML IV ×2 (09:30)
[2017-12-14] MEDS: fentaNYL 100 MCG/2 ML INJECTION (J3010) IV ×2 (09:35→09:41)
[2017-12-14] MEDS: PERCOCET 5MG/325MG TAB PO (10:56)
[2017-12-14] MEDS: ONDANSETRON 4MG/2ML VIAL (J2405) IV (10:56)
== END 2017-12-14 12:45 | disposition home or self-care (01) ==
LOC: M SDC 06:11
DX: K80.18 Calculus of gallbladder with other cholecystitis without obstruction (principal)
CPT/HCPCS: 47562

== ENCOUNTER → 2018-10-16 | Outpatient (REF) | payer MEDICAID, OTHER ==
[~2018-10-16] MED LIST changes: +ALKA1CHW PO; +NORCOTAB PO; +PRIL20CA9 PO; +RANI150T PO; +SIME1CAP PO; +TUMS500C PO
[2018-10-16 17:56] LABS: BASO # 0.1 10^3/uL (0.0-0.2); BASO % 0.6 % (0.0-1.0); EOS # 0.1 10^3/uL (0.0-0.50); EOS % 1.2 % (0.0-3.0); HEMATOCRIT 35.8 % (36.0-47.0); HEMOGLOBIN 11.3 g/dl (12.0-15.5); LYMPH # 2.7 10^3/uL (1.5-6.5); LYMPH % 33.6 % (24.0-44.0); MEAN CORPUSCULAR HEMOGLOBIN 26.5 pg (27.0-33.0); MEAN CORPUSCULAR HGB CONC 31.6 g/dl (32.0-36.5); MONO # 0.5 10^3/uL (0.0-0.8); MONO % 6.4 % (0.0-5.0); NEUTROPHILS # 4.7 10^3/uL (1.8-7.7); PLATELET COUNT, AUTOMATED 221 10^3/uL (150-450); RED BLOOD COUNT 4.26 10^6/uL (4.00-5.40); WHITE BLOOD COUNT 8.2 10^3/uL (4.0-10.0)
[2018-10-16 18:07] LABS: ALBUMIN 3.7 GM/DL (3.2-5.2); ALT/SGPT 24 U/L (12-78); BILIRUBIN,TOTAL 0.3 MG/DL (0.2-1.0); BLOOD UREA NITROGEN 10 MG/DL (7-18); CALCIUM LEVEL 8.4 MG/DL (8.5-10.1); CARBON DIOXIDE LEVEL 26 MEQ/L (21-32); CHLORIDE LEVEL 107 MEQ/L (98-107); CHOLESTEROL LEVEL 160 MG/DL (<200); CHOLESTEROL RISK RATIO 2.461 (<5); CREATININE FOR GFR 0.52 MG/DL (0.55-1.30); GLOMERULAR FILTRATION RATE > 60.0 (>60); GLUCOSE, FASTING 84 MG/DL (70-100); HDL CHOLESTEROL 65 MG/DL (>40); LDL CHOLESTEROL 87 MG/DL (<100); NON-HDL-C 95 MG/DL; POTASSIUM SERUM 4.1 MEQ/L (3.5-5.1); SODIUM LEVEL 140 MEQ/L (136-145); TOTAL PROTEIN 7.2 GM/DL (6.4-8.2); TRIGLYCERIDES LEVEL 40 MG/DL (<150)
[2018-10-16 18:08] LABS: TOTAL 25(OH) VITAMIN D 7.3 NG/ML (30.0-100.0)
[2018-10-16 18:26] LABS: HEMOGLOBIN A1c 5.4 %
== END ==
LOC: M LAB REF 16:32
PROVIDERS: ATTEND Nurse Practitioner Family
DX: Z13.9 Encounter for screening, unspecified (principal); E66.9 Obesity, unspecified

== ENCOUNTER → 2019-08-22 | Outpatient (REF) | payer OTHER, SELFPAY ==
[~2019-08-22] MED LIST changes: +HYDR-3715 PO; -NORCOTAB PO
[2019-08-22 22:03] LABS: CHLAMYDIA DNA AMPLIFICATION POSITIVE (NEGATIVE); GC DNA AMPLIFICATION NEGATIVE (NEGATIVE)
== END ==
LOC: M SFHCLERA 17:22
PROVIDERS: ATTEND Physician Assistant
DX: R35.0 Frequency of micturition (principal); Z20.2 Contact with and (suspected) exposure to infections with a predominantly sexual mode of transmission